=== PATIENT | female | born 1975 | race Caucasian/White ===

== ENCOUNTER 2020-03-04 12:07 | Observation (INO) ==
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
[2020-03-04] MEDS ORDERED: ASPIRIN 81 MG CHEWTAB PO ONE (12:58)
[2020-03-04 13:12] LABS: BASOPHILS # (AUTO) 0.1 X10^3/uL (0.0-0.1); BASOPHILS % (AUTO) 2.1 % (0.2-1.0); EOSINOPHILS # (AUTO) 0.2 x10^3/uL (0.0-0.2); EOSINOPHILS % (AUTO) 2.5 % (0.9-2.9); HEMATOCRIT 37.2 % (36.0-47.0); HEMOGLOBIN 12.5 g/dL (12.0-16.0); LYMPHOCYTES # (AUTO) 1.9 X10^3/uL (1.3-2.9); LYMPHOCYTES % (AUTO) 26.2 % (21.0-51.0); MEAN CORPUSCULAR HEMOGLOBIN 29.4 pg (27.0-34.0); MEAN CORPUSCULAR HGB CONC 33.5 g/dL (33.0-35.0); MEAN CORPUSCULAR VOLUME 87.9 fL (80.0-100.0); MONOCYTES # (AUTO) 0.3 x10^3/uL (0.3-0.8); MONOCYTES % (AUTO) 4.4 % (0.0-13.0); NEUTROPHILS # (AUTO) 4.6 x10^3/uL (2.2-4.8); NEUTROPHILS % (AUTO) 64.8 % (42.0-75.0); PLATELET COUNT 242 X10^3/uL (150.0-450.0); RED BLOOD COUNT 4.24 X10^6/uL (3.5-5.4); RED CELL DISTRIBUTION WIDTH 14.1 % (11.6-16.5); WHITE BLOOD COUNT 7.1 X10^3/uL (3.6-10.0)
[2020-03-04] MEDS: NITROSTAT SL PRN ×3 (13:15→13:25)
[2020-03-04] MEDS ORDERED: NITROSTAT ONE (13:16)
[2020-03-04] MEDS ORDERED: ASPIRIN 81 MG CHEWTAB ONE (13:16)
[2020-03-04 13:28] LABS: BLOOD UREA NITROGEN 12 mg/dL (7-18); CALCIUM 8.3 mg/dL (8.5-10.1); CARBON DIOXIDE 25.6 mmol/L (21-32); CHLORIDE 104 mmol/L (98-107); CREATININE 0.68 mg/dL (0.55-1.02); SODIUM 138 mmol/L (136-145); TROPONIN I < 0.02 ng/mL (0-1.5); eGFR NON BLACK RACES > 60 (>60)
--- NOTE | 2020-03-04 13:28 | RAD ---
HISTORYCHEST PAIN, HTNSTUDYCHEST, 1 VIEWCOMPARISONFebruary 2019FINDINGSThe patient is rotated. The cardiac silhouette is at the upper limits of normal. The lungs are relatively clear without focal infiltrate or effusion.IMPRESSIONNo acute cardiopulmonary disease.Electronically signed by: CITLALY DOUGLAS (Mar 04, 2020 13:28:10)
[2020-03-04 13:32] LABS: ALANINE AMINOTRANSFERASE 28 Units/L (12-78); ALBUMIN 3.2 g/dL (3.4-5.0); ALKALINE PHOSPHATASE 92 Units/L (46-116); ASPARTATE AMINO TRANSFERASE 26 Units/L (15-37); CKMB % 1.2 % (<4); COR CA(FOR HYPOALB) 8.9 mg/dL (8.5-10.1); CREATINE KINASE 94 Units/L (26-192); CREATINE KINASE MB 1.1 ng/mL (0-4.0); TOTAL PROTEIN 6.4 g/dL (6.4-8.2)
[2020-03-04] MEDS ORDERED: ZOFRAN INJ 4 MG VIAL IVP ONE (13:34)
[2020-03-04] MEDS ORDERED: MORPHINE SULFATE INJ 4 MG IVP ONE (13:34)
[2020-03-04] MEDS ORDERED: ZOFRAN INJ 4 MG VIAL ONE (13:36)
[2020-03-04] MEDS ORDERED: MORPHINE SULFATE INJ 4 MG ONE (13:36)
[2020-03-04 18:24] VITALS: BMI 40.1
[2020-03-04] MEDS ORDERED: MORPHINE SULFATE INJ 2 MG INJ IVP PRN (19:00)
[2020-03-04] MEDS ORDERED: PEPCID 20 MG IV PREMIX* 20 MG/50 ML BAG IV PRN (19:00)
[2020-03-04] MEDS: NS 1000 ML 1,000 ML IV SCH (19:00)
[2020-03-04] MEDS: MOTRIN TAB 800 MG PO PRN (21:26)
[2020-03-04] MEDS: COREG TAB 12.5 MG PO SCH (22:30)
[2020-03-04 23:38] LABS: CKMB % 2.2 % (<4); CREATINE KINASE 45 Units/L (26-192); CREATINE KINASE MB < 1.0 ng/mL (0-4.0); TROPONIN I < 0.02 ng/mL (0-1.5)
[2020-03-05 01:34] LABS: BILIRUBIN,URINE NEGATIVE (NEGATIVE); BLOOD/HEMOGLOBIN,URINE NEGATIVE (NEGATIVE); GLUCOSE, URINE NEGATIVE (NEGATIVE); KETONES,URINE NEGATIVE (NEGATIVE); LEUKOCYTE ESTERASE ,URINE NEGATIVE (NEGATIVE); NITRITES,URINE NEGATIVE (NEGATIVE); PROTEIN,URINE NEGATIVE (NEGATIVE); UROBILINOGEN,URINE NORMAL (NORMAL)
[2020-03-05 01:42] LABS: APPEARANCE,URINE CLEAR (CLEAR); COLOR,URINE YELLOW (YELLOW)
[2020-03-05 05:57] LABS: BASOPHILS % (AUTO) 0.6 % (0.2-1.0); EOSINOPHILS # (AUTO) 0.2 x10^3/uL (0.0-0.2); EOSINOPHILS % (AUTO) 2.7 % (0.9-2.9); HEMATOCRIT 36.7 % (36.0-47.0); HEMOGLOBIN 12.1 g/dL (12.0-16.0); LYMPHOCYTES # (AUTO) 1.8 X10^3/uL (1.3-2.9); MEAN CORPUSCULAR HEMOGLOBIN 29.6 pg (27.0-34.0); MEAN CORPUSCULAR HGB CONC 33.1 g/dL (33.0-35.0); MEAN CORPUSCULAR VOLUME 89.4 fL (80.0-100.0); MEAN PLATELET VOLUME 7.9 fL (7.4-11.0); MONOCYTES # (AUTO) 0.3 x10^3/uL (0.3-0.8); MONOCYTES % (AUTO) 4.8 % (0.0-13.0); NEUTROPHILS # (AUTO) 4.3 x10^3/uL (2.2-4.8); NEUTROPHILS % (AUTO) 64.9 % (42.0-75.0); PLATELET COUNT 205 X10^3/uL (150.0-450.0); RED CELL DISTRIBUTION WIDTH 14.1 % (11.6-16.5); WHITE BLOOD COUNT 6.7 X10^3/uL (3.6-10.0)
[2020-03-05 06:16] LABS: ALANINE AMINOTRANSFERASE 26 Units/L (12-78); ALBUMIN 2.9 g/dL (3.4-5.0); ALKALINE PHOSPHATASE 88 Units/L (46-116); ASPARTATE AMINO TRANSFERASE 14 Units/L (15-37); BLOOD UREA NITROGEN 14 mg/dL (7-18); CALCIUM 7.8 mg/dL (8.5-10.1); CHLORIDE 106 mmol/L (98-107); COR CA(FOR HYPOALB) 8.7 mg/dL (8.5-10.1); CREATININE 0.85 mg/dL (0.55-1.02); SODIUM 140 mmol/L (136-145); TOTAL PROTEIN 5.8 g/dL (6.4-8.2); eGFR NON BLACK RACES > 60 (>60)
[2020-03-05 06:18] LABS: CREATINE KINASE 40 Units/L (26-192); CREATINE KINASE MB 0.8 ng/mL (0-4.0)
[2020-03-05 06:24] LABS: TROPONIN I < 0.02 ng/mL (0-1.5)
[2020-03-05] MEDS: NS 1000 ML 1,000 ML IV SCH ×2 (06:24→15:22)
[2020-03-05] MEDS ORDERED: GLUCOPHAGE ONE (08:28)
[2020-03-05] MEDS ORDERED: ZESTRIL TAB 20 MG ONE (08:28)
[2020-03-05] MEDS: COREG TAB 12.5 MG PO SCH (08:40)
[2020-03-05] MEDS: MOTRIN TAB 800 MG PO PRN (08:47)
[2020-03-05] MEDS ORDERED: GLUCOPHAGE PO SCH (09:00)
[2020-03-05] MEDS ORDERED: ZESTRIL TAB 20 MG PO SCH (09:00)
[2020-03-05] MEDS ORDERED: CELEXA PO SCH (09:00)
[2020-03-05 15:54] VITALS: BP 175/81
== END 2020-03-05 17:20 | disposition home or self-care (01) ==
LOC: ER 12:07 → MED/SURG 12:07
PROVIDERS: ADMIT Obstetrics & Gynecology Obstetrics; ATTEND Obstetrics & Gynecology Obstetrics
DX: R51 Headache; R42 Dizziness and giddiness; R94.31 Abnormal electrocardiogram [ECG] [EKG]; I10 Essential (primary) hypertension; Z79.899 Other long term (current) drug therapy; Z20.828 Contact with and (suspected) exposure to other viral communicable diseases; I25.119 Atherosclerotic heart disease of native coronary artery with unspecified angina pectoris; K21.9 Gastro-esophageal reflux disease without esophagitis; R07.89 Other chest pain; R06.02 Shortness of breath; E11.65 Type 2 diabetes mellitus with hyperglycemia